=== PATIENT | female | born 1950 | race African-American/Black ===

== ENCOUNTER 2019-08-10 18:49 | Emergency (ER) | payer OTHER ==
[~2019-08-10] VITALS: Ht 167.6 cm; Wt 64.9 kg
== END 2019-08-10 22:13 | disposition home or self-care (01) ==
LOC: ER 18:49
DX: R55 Syncope and collapse (principal)

== ENCOUNTER 2019-08-11 06:00 | Inpatient (IN) | payer OTHER ==
[~2019-08-11] VITALS: Ht 165.1 cm; Wt 77.1 kg
--- NOTE | 2019-08-11 06:25 | NUR ---
PTE LLEGA EN AMBULANCIA LEVEMENTE LETARGICA POR SANGRADO RECTAL. SE ACOMODA EN CAMA EN LA UNIDAD DE CRITICO Y SE CONECTA A MONITOR CARDIACO. .
--- NOTE | 2019-08-11 06:57 | NUR ---
SE RECIBE PTE FEMENIA DE 69 YRS ALERTA CONCIETNE Y LERTAGICA EN AMBULANCIA. SE ACOMODA EN CAMA EN LA UNIDAD DE CRITICO SE CONECTA A MONITOR CARDIACO Y OXIMETRIA. PTE LLEGA POR TRAUMA POR RECTAL BLEEDING ES EVALUADA POR LA DEEDEE JARVISIEN ORDENA TRATAMIENTO LA CUAL SE EJECUTA. SE INTENTA PINCHAR VARIAS VESES POR MS TYLER GARCIA Y ESTA SERVIDORA Y NO SE PUDO. SE LLAMA A EL MINA BARTLETT HAMMOND POR ORDEN DE LA DEEDEE JARVISIEN LLAMA Y LLEGA A PONER LA SUB CLAVIA A LA PTE POR LADO DERECHO , SE LE VERENICE MUESTRAS DE ALTHEA Y SE ENVIA A EL LABORATORIO.SE LE REALIZA RX PORTABLE DE PECHO. Y SE VERENICE TUBO GARCÍA PARA PRBS PARA TRANFUCION ORDENADAS .SE LE CONECTA A OXIGENO .
--- NOTE | 2019-08-11 07:17 | NUR ---
SE LE INSERTA FOLIE CATHETE A PTE Y SE OBSERVA ESCRETA COFEE BROWN. SE MANTIENE BAJO OBSERVACION.
--- NOTE | 2019-08-11 09:24 | NUR ---
SE LE OFRECE PETER A PTE. CON HY-BEE CLEAN LUEGO DE ORIENAR PTE. Y FAMILIAR SE OBSEVA SANGRADO RECTAL ACTIVO SE LE COLOCA UNDER PAD PROVISIONAL SE LE ORIENTA FAMILIAR DE PTE. SOBRE LA NECESIDAD DE TRAERLE PAMPER A PTE. Y VERBALIZO ENTENDER .
[2019-08-19] MEDS ORDERED: PANTOPRAZOLE SO40 MG PO (10:35)
[2019-08-19] MEDS ORDERED: CARAFATE1 GM PO (10:35)
[2019-08-19] MEDS ORDERED: INTEGRA PLUS C1 EACH PO (10:36)
[2019-08-19] MEDS ORDERED: VITAMIN B-121000 MC2 SL (10:36)
== END 2019-08-19 10:51 | disposition home or self-care (01) | DRG 392 ==
LOC: ER 06:00 → ICU-2 08:48 → ICU 08:48 → ICU-2 17:31 → ICU 17:32 → MEDI 08-18 17:11
PROVIDERS: ADMIT Internal Medicine
PROC: 02HV33Z Insertion of Infusion Device into Superior Vena Cava, Percutaneous Approach (ICD-10-PCS; 2019-08-11)
PROC: 30233N1 Transfusion of Nonautologous Red Blood Cells into Peripheral Vein, Percutaneous Approach (ICD-10-PCS; 2019-08-11)
PROC: 0T9B70Z Drainage of Bladder with Drainage Device, Via Natural or Artificial Opening (ICD-10-PCS; 2019-08-11)
PROC: 0DJ08ZZ Inspection of Upper Intestinal Tract, Via Natural or Artificial Opening Endoscopic (ICD-10-PCS; principal; 2019-08-17)
PROC: 4A12X4Z Monitoring of Cardiac Electrical Activity, External Approach (ICD-10-PCS; 2019-08-18)
DX: K31.84 Gastroparesis (principal); K92.0 Hematemesis; D62 Acute posthemorrhagic anemia; K92.1 Melena; R55 Syncope and collapse; S00.83XA Contusion of other part of head, initial encounter; N39.8 Other specified disorders of urinary system; Z98.84 Bariatric surgery status